=== PATIENT | female | born 1975 | race Caucasian/White ===

== ENCOUNTER 2017-10-12 01:58 | Emergency (ER) | payer SELFPAY ==
[2017-10-12 02:00] VITALS: BP 148/93; PULSE 83; RESP 22; TEMP 37.2; O2SAT 100; BMI 32.1
[2017-10-12 02:24] LABS: Absolute Lymphocyte Count 1.62 X10^3/ul (0.83-4.51); Absolute Neutrophil Count 7.1 X10^3/uL (2.0-7.7); Basophil# 0.04 X10^3/uL; Basophil% 0.4 % (0-1); Eosinophil# 0.14 X10^3/uL; Eosinophils% 1.5 % (0-5); Hematocrit 30.6 % (37-47); Hemoglobin 9.4 g/dl (12.0-15.0); Lymphocyte # 1.62 X10^3/ul (4.0); Mean Corp Hgb Conc 30.7 g/gl (32-36); Mean Corpuscular Hgb 22.5 pg (27.0-32.0); Mean Corpuscular Volume 73.4 fL (81-99); Mean Platelet Vol. 8.5 fl (6.2-12.0); Monocyte# 0.44 X10^3/uL; Monocyte% 4.6 % (0-10); Neutrophil # 7.11 X10^3/uL (2.7-7.7); Neutrophil % 74.4 % (47-70); Platelet Count 408 K/mm3 (150-450); RBC Distribution Width CV 19.8 % (11.6-14.6); RBC Distribution Width SD 49.9 fl (35.1-43.9); Red Blood Count 4.17 M/mm3 (4.2-5.4); White Blood Count 9.6 K/mm3 (4.4-11.0)
[2017-10-12 02:25] LABS: Differential Indicated SCAN CRITERIA MET; POSITIVE COUNT YES; POSITIVE DIFFERENTIAL NO; POSITIVE MORPHOLOGY YES
[2017-10-12 02:39] LABS: Differential Comment SCANNED; Microcytosis 3+
[2017-10-12] MEDS: 0.9% Normal Saline 1,000 ML 1000 ML IV (02:41)
[2017-10-12 02:47] LABS: ALB/GLOB Ratio 0.6 RATIO (0.9-2.4); AST(SGOT) 14 U/L (15-37); Alanine Aminotransfer ALT/SGPT 20 U/L (13-56); Albumin, Serum 2.7 g/dL (3.2-5.0); Alkaline Phosphatase 50 U/L (45-117); Anion Gap 10 (5-15); BUN 14 mg/dL (7-18); BUN/Creat Ratio 26.4 RATIO (10-20); Calcium,Total 8.4 mg/dL (8.5-10.1); Chloride 106 mmol/L (98-107); Creatinine, Serum 0.53 mg/dL (0.55-1.02); EST Glomerular Filtration Rate 136 mL/min (>60); Est Glom Filt Rate - Afr Amer 164 mL/min (>60); Estimated Creatinine Clearance 121.84 ml/min; Globulin 4.3 g/dL (2.2-4.2); Glucose 99 mg/dL (74-106); Potassium 3.7 mmol/L (3.5-5.1); Sodium Level 140 mmol/L (136-145)
[2017-10-12 03:30] VITALS: BP 128/74; PULSE 84; RESP 16; O2SAT 100
[2017-10-12 03:53] LABS: Mucous, Urine 0 SEEN /hpf (<or=2+); Red Blood Cells-Urine 0 SEEN /hpf (0-5)
--- NOTE | 2017-10-12 03:53 | NURSING ---
REPAGED DR. CARSON FOR THE 4TH TIME, HAS BEEN AN HOUR OF REPAGING EVERY 20 MINUTES
[2017-10-12 03:57] LABS: Color, Urine Straw (Yellow); Glucose, Dipstick Normal (Normal); Ketone-Dipstick Negative (Negative); Leukocyte Esterase-Dipstick 100 /ul (Negative); Nitrite-Dipstick Positive (Negative); Occult Blood-Urine Negative /ul (Negative); Protein-Dipstick Negative (Negative); Urine Bilirubin Dipstick Negative (Negative); Urine Clarity Clear (Clear); Urine Urobilinogen Normal (Normal); Urine pH 6.5 (5.0 - 8.0)
--- NOTE | 2017-10-12 04:16 | NURSING ---
DR. CARSON FINALLY RETURNED PAGE
[2017-10-12 04:20] LABS: Bacteria 3+ /hpf (None Seen); Squamous Epithelial Cells - UA 0-5 SEEN /hpf (5-10); White Blood Cells 5-10 SEEN /hpf (0-5)
--- NOTE | 2017-10-12 04:31 | ED.VISSUMM ---
- ER Visit Summary Date of Service: 10/12/17 Chief Complaint: Seizure History of Present Illness: The patient is a 42 F who is 17 weeks , Ab2. She presents today for seizures. 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 She did have surgery for this 10 years ago. She has had increasing seizures recently. They have been every few days, but today she had 4. She was on seizure meds with her most recent about 7 years ago, but is not sure what she was taking. She had 4 episodes tonight involving her right arm. At one time she could not move her right arm and during the other episodes, she had shaking or stiffness in her right arm. She did not lose consciousness. Denies trauma. Denies abdominal pain, vaginal bleeding, or discharge. Physical Examination: Blood pressure 148/93. Otherwise vitals normal. Atraumatic and normocephalic. Cranial nerves grossly intact. Heart regular. Lungs clear. Abdomen soft. Extremities unremarkable. No focal or lateralizing neurologic abnormalities. Alert and oriented. Mood and affect are appropriate for the situation. Test Results: CBC unremarkable except for hemoglobin of 9.4. CMP normal. Urinalysis shows a UTI. Cultures pending. Emergency Department Course and Treatment: Patient had fluids. Was observed in the emergency department. The heart tones were 150. No further seizure activity. Repeat blood pressures are much improved, 128/85. No edema noted. Normal liver function. Normal platelets. Patient will be started on Macrobid for her UTI. Cultures pending. I spoke with Dr. Malagon. Patient will be started on Keppra, 500 mg twice a day. Follow-up in the office. She was given seizure precautions. No driving. Complications discussed. She will take her medication. Follow-up with neurology. Follow-up with her OB doctor, JUAN CARLOS at [facility]. Treatment Plan: As above Disposition: Discharged Impression: 1. Seizure 2. second trimester 3. UTI This note was generated with [employer] software. It may contain incorrect words, spelling, and punctuation that were not noted in review of the chart prior to signing ED Disposition - Plan for ED Patient: Chief Complaint: Seizure Referrals: Care Physician,No Primary [Primary Care Provider] -
--- NOTE | 2017-10-12 04:35 | ED.DCSUM_ITS ---
- ER Visit Summary Date of Service: 10/12/17 Chief Complaint: Seizure History of Present Illness: The patient is a 42 F who is 17 weeks , Ab2. She presents today for seizures. 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 She did have surgery for this 10 years ago. She has had increasing seizures recently. They have been every few days, but today she had 4. She was on seizure meds with her most recent about 7 years ago, but is not sure what she was taking. She had 4 episodes tonight involving her right arm. At one time she could not move her right arm and during the other episodes, she had shaking or stiffness in her right arm. She did not lose consciousness. Denies trauma. Denies abdominal pain, vaginal bleeding, or discharge. Physical Examination: Blood pressure 148/93. Otherwise vitals normal. Atraumatic and normocephalic. Cranial nerves grossly intact. Heart regular. Lungs clear. Abdomen soft. Extremities unremarkable. No focal or lateralizing neurologic abnormalities. Alert and oriented. Mood and affect are appropriate for the situation. Test Results: CBC unremarkable except for hemoglobin of 9.4. CMP normal. Urinalysis shows a UTI. Cultures pending. Emergency Department Course and Treatment: Patient had fluids. Was observed in the emergency department. The heart tones were 150. No further seizure activity. Repeat blood pressures are much improved, 128/85. No edema noted. Normal liver function. Normal platelets. Patient will be started on Macrobid for her UTI. Cultures pending. I spoke with Dr. Malagon. Patient will be started on Keppra, 500 mg twice a day. Follow-up in the office. She was given seizure precautions. No driving. Complications discussed. She will take her medication. Follow-up with neurology. Follow-up with her OB doctor, JUAN CARLOS at [facility]. Treatment Plan: As above Disposition: Discharged Impression: 1. Seizure 2. second trimester 3. UTI This note was generated with [employer] software. It may contain incorrect words, spelling, and punctuation that were not noted in review of the chart prior to signing ED Disposition - Plan for ED Patient: Chief Complaint: Seizure Referrals: Care Physician,No Primary [Primary Care Provider] -
--- NOTE | 2017-10-12 04:35 | ED.DEP ---
ED Disposition - Plan for ED Patient: Chief Complaint: Seizure Instructions: ED Seizure Recurrent Prescriptions: Levetiracetam [Keppra] 500 mg PO BID #60 tab Nitrofurantoin Monohyd/M-Cryst [Macrobid 100 mg Capsule] 100 mg PO BID #14 cap Referrals: Chris Malagon MD [STAFF PHYSICIAN] - Additional Instructions: Also follow-up with your MFM doctor at [facility]. You will need close monitoring and checks of your blood pressure.
[2017-10-12 04:41] VITALS: BP 143/95; PULSE 100; RESP 27; O2SAT 100
[2017-10-12] MEDS: levETIRAcetam 500 MG Tablet PO (04:41)
[2017-10-12] MEDS: Nitrofurantoin Macrocrystals 100 MG Capsule PO (04:41)
[2017-10-15 11:10] LABS: Pathologist Review Reviewed
== END 2017-10-12 04:51 | disposition home or self-care (01) ==
PROVIDERS: Emergency Provider Emergency Medicine
DX: O99.352 Diseases of the nervous system complicating pregnancy, second trimester (principal); G40.909 Epilepsy, unspecified, not intractable, without status epilepticus; O23.42 Unspecified infection of urinary tract in pregnancy, second trimester; Z3A.17 17 weeks gestation of pregnancy; Z87.891 Personal history of nicotine dependence
CPT/HCPCS: 80053; 81001; 85025; 87086; 87088; 87186; 99285; A4216

== ENCOUNTER → 2017-10-15 13:30 | Outpatient (CLI) | payer SELFPAY ==
[2017-10-15 15:35] LABS: Hematocrit 31.1 % (37-47); Hemoglobin 9.4 g/dl (12.0-15.0); Mean Corp Hgb Conc 30.2 g/gl (32-36); Mean Corpuscular Hgb 22.4 pg (27.0-32.0); Mean Platelet Vol. 9.1 fl (6.2-12.0); Platelet Count 442 K/mm3 (150-450); RBC Distribution Width CV 20.1 % (11.6-14.6); RBC Distribution Width SD 51.9 fl (35.1-43.9); White Blood Count 10.8 K/mm3 (4.4-11.0)
[2017-10-15 16:17] LABS: Scan Indicated on CBC? Y/N YES- FLAGS NOTED
[2017-10-15 16:29] LABS: HIV - WCH Non-Reactive (Nonreactive); Rubella IgG 71.2 IU/mL
[2017-10-17 07:12] LABS: HEPATITIS B SURFACE AG Negative (Negative)
[2017-10-21 01:48] LABS: Rapid Plasmin Reagin (RPR) NONREACTIVE (NONREACTIVE)
== END ==
DX: O09.90 Supervision of high risk pregnancy, unspecified, unspecified trimester (principal); Z3A.00 Weeks of gestation of pregnancy not specified
CPT/HCPCS: 36415; 85027; 86592; 86703; 86762; 87086; 87088; 87340

== ENCOUNTER → 2017-11-12 10:38 | Outpatient (CLI) | payer SELFPAY ==
[2017-11-13 01:01] LABS: Chlamydia Trachomatis by PCR Negative (Negative); Neisserai gonorrhoeae by PCR Negative (Negative); Probe Check PASS; Sample Adequacy Control PASS; Specimen Processing Control PASS
[2017-11-20 10:08] LABS: HPV HC, High Risk Positive (Negative)
== END ==
DX: O09.90 Supervision of high risk pregnancy, unspecified, unspecified trimester (principal); O99.352 Diseases of the nervous system complicating pregnancy, second trimester; G40.909 Epilepsy, unspecified, not intractable, without status epilepticus; Z3A.00 Weeks of gestation of pregnancy not specified; Z12.4 Encounter for screening for malignant neoplasm of cervix
CPT/HCPCS: 36415; 86850; 86900; 87086; 87088; 87491; 87591; 88175; G0145

== ENCOUNTER 2017-11-16 17:12 | Emergency (ER) | payer SELFPAY ==
[2017-11-16 17:13] VITALS: BP 128/90; PULSE 96; RESP 16; TEMP 37.1; O2SAT 98; BMI 29.3
--- NOTE | 2017-11-16 18:20 | ED.DCSUM_ITS ---
- ER Visit Summary Date of Service: 11/16/17 Chief Complaint: Seizure History of Present Illness: The patient is a 42 F presenting with seizure. Patient states that she has had several seizures today. She is unsure how many seizures. These were unwitnessed. She had no injury. She states her daughter came home from school and witnessed 3 seizures. She is unable to describe how long the seizures were or the number of seizures. She is 22 weeks . She states that she feels the baby moving normally. No vaginal bleeding or abdominal pain. Patient states last week she was worried that she was going to run out of her Keppra so she changed her medication to once daily to spread out the medications. She went back up to her normal twice daily dosing on Sunday. No fever or other complaints. Physical Examination: Vitals are stable. Patient is afebrile. Alert no acute distress. HEENT exam is unremarkable. Neck is supple. Lungs are clear and equal bilaterally. Heart is regular rate and rhythm. Abdomen is soft nontender gravid Extremities are unremarkable. Skin is warm and dry. No focal neurologic deficit. Remainder of exam is unremarkable. Emergency Department Course and Treatment: heart tones 150. Patient is given Tylenol p.o. She was observed in the ED and had no further seizure activity. Discussed with Dr. Alonso who recommends increasing her Keppra to 750 mg twice daily. Recommends Keppra level and repeat Keppra level every month during . Patient will follow up with neurology and her [employer]. She is advised return to ED if worsening complaints. Disposition: Discharge home Impression: Seizure disorder, This note was generated with [employer] dictation software. It may contain incorrect words, spelling, and punctuation that were not noted in review of the chart prior to signing ED Disposition - Plan for ED Patient: Chief Complaint: Seizure Referrals: Care Physician,No Primary [Primary Care Provider] -
[2017-11-16 20:11] VITALS: BP 131/79; PULSE 78; RESP 16; O2SAT 99
[2017-11-16] MEDS: Acetaminophen 500 MG Tablet 1000 MG PO (20:13)
--- NOTE | 2017-11-16 20:29 | ED.DEP ---
ED Disposition - Plan for ED Patient: Chief Complaint: Seizure Instructions: ED Seizure Recurrent Prescriptions: Levetiracetam [Keppra] 750 mg PO BID #60 tablet Referrals: Care Physician,No Primary [Primary Care Provider] -
--- NOTE | 2017-11-16 20:29 | ED.RN ---
THERE ARE NO SOFT SEIZURE PADS AVAILABLE, PT HAS VISITOR AT BEDSIDE AND CALL LIGHT.
[2017-11-16 20:34] VITALS: BP 121/89; PULSE 75; RESP 16; O2SAT 99
[2017-11-19 14:49] LABS: KEPPRA (LEVETIRACETAM) 4.7 ug/mL (10.0-40.0)
== END 2017-11-16 20:38 | disposition home or self-care (01) ==
LOC: ED 18:24
PROVIDERS: Emergency Provider Emergency Medicine
DX: O99.352 Diseases of the nervous system complicating pregnancy, second trimester (principal); G40.909 Epilepsy, unspecified, not intractable, without status epilepticus; Z3A.22 22 weeks gestation of pregnancy
CPT/HCPCS: 36415; 80177; 99283

== ENCOUNTER → 2017-11-27 11:41 | Outpatient (CLI) | payer SELFPAY ==
[2017-11-27 13:38] LABS: Absolute Lymphocyte Count 1.75 X10^3/ul (0.83-4.51); Absolute Neutrophil Count 6.8 X10^3/uL (2.0-7.7); Basophil# 0.01 X10^3/uL; Basophil% 0.1 % (0-1); Differential Indicated SCAN CRITERIA MET; Eosinophil# 0.16 X10^3/uL; Eosinophils% 1.7 % (0-5); Hematocrit 33.2 % (37-47); Hemoglobin 10.3 g/dl (12.0-15.0); Lymphocyte # 1.75 X10^3/ul (4.0); Mean Corpuscular Hgb 26.5 pg (27.0-32.0); Mean Corpuscular Volume 85.6 fL (81-99); Mean Platelet Vol. 8.9 fl (6.2-12.0); Monocyte# 0.46 X10^3/uL; Neutrophil # 6.77 X10^3/uL (2.7-7.7); Neutrophil % 73.5 % (47-70); POSITIVE COUNT NO; POSITIVE DIFFERENTIAL NO; POSITIVE MORPHOLOGY YES; Platelet Count 271 K/mm3 (150-450); RBC Distribution Width CV 23.5 % (11.6-14.6); RBC Distribution Width SD 73.2 fl (35.1-43.9); Red Blood Count 3.88 M/mm3 (4.2-5.4); White Blood Count 9.2 K/mm3 (4.4-11.0)
[2017-11-27 13:58] LABS: Glucose Challenge Gest 1H 50g 108 mg/dL (70-140)
[2017-11-27 14:00] LABS: Anisocytosis 2+; Hypochromasia RARE; Microcytosis 1+
== END ==
PROVIDERS: Visit Provider Obstetrics & Gynecology Maternal & Fetal Medicine
DX: O09.529 Supervision of elderly multigravida, unspecified trimester (principal); Z3A.24 24 weeks gestation of pregnancy
CPT/HCPCS: 36415; 82950; 85025

== ENCOUNTER 2017-12-17 11:51 | Outpatient (RCR) | payer MEDICAID, SELFPAY ==
[2017-12-19 11:27] LABS: KEPPRA (LEVETIRACETAM) 11.6 ug/mL (10.0-40.0)
== END 2017-12-17 12:00 | disposition home or self-care (01) ==
LOC: LAB 11:51
PROVIDERS: Visit Provider Psychiatry & Neurology Neurology
DX: R56.9 Unspecified convulsions (principal)
CPT/HCPCS: 36415; 80177

== ENCOUNTER → 2018-01-14 12:19 | Outpatient (CLI) | payer MEDICAID, SELFPAY ==
[2018-01-17 11:41] LABS: KEPPRA (LEVETIRACETAM) 11.8 ug/mL (10.0-40.0)
== END ==
PROVIDERS: Visit Provider Nurse Practitioner Acute Care
DX: G40.909 Epilepsy, unspecified, not intractable, without status epilepticus (principal)
CPT/HCPCS: 36415; 80177

== ENCOUNTER 2018-02-11 12:03 | Outpatient (RCR) | payer MEDICAID, SELFPAY ==
--- NOTE | 2018-02-11 12:03 | DT_ITS ---
This patient was seen during an EMR downtime February 04, 2018 - February 11, 2018. This patient may have a combination of paper and electronic documentation or all paper documentation. All documentation is viewable within the e-chart portion of [employer] for each patient visit.
== END 2018-02-11 13:00 | disposition home or self-care (01) ==
LOC: LAB 12:03
PROVIDERS: Visit Provider Psychiatry & Neurology Neurology
DX: G40.909 Epilepsy, unspecified, not intractable, without status epilepticus (principal)
CPT/HCPCS: 36415; 80177

== ENCOUNTER → 2018-02-11 12:31 | Outpatient (CLI) | payer MEDICAID, SELFPAY ==
--- NOTE | 2018-02-11 12:31 | DT_ITS ---
This patient was seen during an EMR downtime February 04, 2018 - February 11, 2018. This patient may have a combination of paper and electronic documentation or all paper documentation. All documentation is viewable within the e-chart portion of [employer] for each patient visit.
[2018-02-11 14:18] LABS: Group B Strep DNA By PCR Negative (Negative); Internal Control PASS; Probe Check PASS; Specimen Processing Control PASS
== END ==
DX: Z36.85 Encounter for antenatal screening for Streptococcus B (principal); O99.353 Diseases of the nervous system complicating pregnancy, third trimester; G40.909 Epilepsy, unspecified, not intractable, without status epilepticus; Z3A.35 35 weeks gestation of pregnancy
CPT/HCPCS: 36415; 80177; 87081; 87653

== ENCOUNTER → 2018-05-07 16:11 | Outpatient (CLI) | payer MEDICAID, SELFPAY ==
[2018-05-11 09:14] LABS: KEPPRA (LEVETIRACETAM) 22.3 ug/mL (10.0-40.0)
== END ==
PROVIDERS: Visit Provider Nurse Practitioner Acute Care
DX: R56.9 Unspecified convulsions (principal)
CPT/HCPCS: 36415; 80177

== ENCOUNTER → 2018-08-20 14:23 | Outpatient (CLI) | payer MEDICAID, SELFPAY ==
[2018-08-07 15:37] VITALS: BMI 32.1
--- NOTE | 2018-08-20 14:26 | CT_ITS ---
Exam: CTA of the neck with contrast and 2-D reconstructions. HISTORY: Headache. History of left-sided AVM. COMPARISON: None TECHNIQUE: Patient injected with 100 cc Isovue-370 IV. Axial images were followed with 2-D MIPS reconstructions reviewed at a separate workstation. FINDINGS: Normal appearance of the visualized aortic arch. Normal branching pattern of the great vessels. Common carotid arteries are normal for age. No significant calcified plaque of the carotid bulbs. No measurable stenosis at the carotid bulb or the origins of either ICA. Normal appearance of the cervical ICAs bilaterally to the base of the brain. Normal origin and appearance of the vertebral arteries. Normal visualized basilar artery. Visualized soft tissues including the lung apices and visualized cervical spine show no gross acute abnormalities. CT/CTA Neck W/WO Contrast IMPRESSION: CTA of the neck vessels is normal for age. Electronically Signed: Familia Alamo MD at 16:25 EST , Service support ,
--- NOTE | 2018-08-20 14:26 | CT_ITS ---
STUDY: CT BRAIN WITH AND WITHOUT CONTRAST REASON FOR EXAM: Female, 43 years old. Left-sided headache behind eye history of AVM with repair RADIATION DOSAGE (If Supplied By Facility): CTDIvol = ( 34.53 ) mGy, DLP = ( 2288.30 ) mGycm TECHNIQUE: Transaxial CT imaging of the brain was performed pre and post contrast administration. The examination was performed with intravenous administration of 100 ml of Isovue 370 contrast material. Individualized dose optimization techniques were used for this CT. COMPARISON: Previous study of 12/15/2011 FINDINGS: Normal soft tissue structures. Normal calvarium. There is extensive scanning artifact caused by multiple embolization coils of the left frontoparietal region. The visualized lateral ventricles are normal in size and are symmetric. The third and fourth ventricles are midline. Normal white matter tracts of the cerebral hemispheres. Normal basal ganglia and thalami. Normal brainstem. Normal cerebellum. There is no intracranial hemorrhage. There are no findings of an acute ischemic infarction. There is complete opacification of the right maxillary sinus. CT/Brain/Head W/WO Contrast IMPRESSION: Limited study secondary to extensive scanning artifact caused by embolization coils of the left frontoparietal region. The findings are consistent with AVM repair. There is no evidence of intracranial hemorrhage or acute infarct. There is complete opacification of the right maxillary sinus. Electronically Signed: Jorge A Ferro MD at 16:28 EST , Service support ,
--- OUTSIDE RECORDS SUMMARY | 2018-11-22 02:00 | XMS RPT_ITS ---
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 [facility] Number: Effective Repository Date:2018-05-07 04/22/2018 BETH EZEKIEL Primary BETH EZEKIEL [facility] LECKRONEDOB: Insurance:CARESOURCEP LECKRONEDOB: [facility] olicy Number: [id number] Repository [place], [id number] 0 [place] [address]Fsj: Date: [place] [address] () 03/25/2018 BETH EZEKIEL Primary BETH EZEKIEL [facility] LECKRONEDOB: Insurance:CARESOURCEP LECKRONEDOB: Hospital olicy Number: [id number] Repository [place], [id number] 0 [place] [address]Fop: Date: [place] [address] (HP) 03/11/2018 BETH A Primary BETH A [facility] LECKRONEDOB: Insurance:CARESOURCE LECKRONEDOB: Health System MEDICAIDPolicy [id number] Repository [place], Number: [place] [address]Skb: [id number] Date: (HP) 03/04/2018 BETH EZEKIEL Primary [facility] LECKRONEDOB: Insurance:CARESOURCEP LECKRONEDOB: [facility] olicy Number: [id number] Repository [place], [id number] 0 [place] [address]Yht: Date: [place] [address] (HP) 03/04/2018 BETH EZEKIEL Primary [facility] LECKRONEDOB: Insurance:CARESOURCEP LECKRONEDOB: [facility] oly Number: [id number] Repository [place] [address], [id number] 0 [place] [address]Ezx: Date: [place] [address] (HP) 03/03/2018 BETH A Primary BETH A Greg [id number] Insurance:CARESOURCEP LECKRONEDOB: [facility] TWANFILOMENA [facility] Number: [id number][facility]Canonc[facility] [address]Okh: [id number] Repository Date:2018-01-01 O () [address]ATTN: [place] [address]FZ: 03/03/2018 Secondary NOT GIVENUNK Greg Insurance:SELF PAY [facility] Number: Effective Repository Date:2018-03-01 02/25/2018 BETH EZEKIEL Primary [facility] LECKRONEDOB: Insurance:CARESOURCEP LECKRONEDOB: [facility] Number: [id number] Repository [place] [address], [id number] 0 [place] [address]Ner: Date: [place] [address] (HP) 02/25/2018 BETH EZEKIEL Primary BETH EZEKIEL [facility] LECKRONEDOB: Insurance:CARESOURCEP LECKRONEDOB: Hospital olicy Number: [id number] Repository [place] [address], [id number] 0 [place] [address]Dai: Date: [place] [address] (HP) 02/21/2018 BETH A Primary [facility] LECKRONEDOB: Insurance:CARESOURCE LECKRONEDOB: Health System MEDICAIDPolicy [id number] Repository [facility] Number: [place] [id number]: (330) Date: [phone] (HP) 02/18/2018 BETH EZEKIEL Primary [facility] LECKRONEDOB: Insurance:CARESOURCEP LECKRONEDOB: Hospital olicy Number: [id number] Repository [place] IRLANDA, [id number] 0 [place] [address]Kwi: Date: [place] [address] () 02/18/2018 BETH EZEKIEL Primary [facility] LECKRONEDOB: Insurance:CARESOURCEP LECKRONEDOB: Hospital olicy Number: [id number] Repository [place] IRLANDA, [id number] 0 [place] [address]Nkg: Date: [facility] [place] [address] () 02/11/2018 BETH A Primary BETH A Greg [id number] Insurance:CARESOURCEP LECKRONEDOB[facility] [place] Number: [id number] [facility] [place] [address]Tug: [id number] Repository Date:2018-02-11 O () [address]ATTN: [place] [address]MR: 02/11/2018 Secondary NOT GIVENUNK [place] Insurance:SELF PAY [facility] Number: Effective Repository Date:2018-02-11 02/11/2018 BETH Smalls Primary BETH A Greg [id number] Insurance:CARESOURCEP LECKRONEDOB: [facility] IRLANDA [facility] Number: [id number] [address]Oia: [id number] Repository Date:2018-01-01 O () [address]ATTN: [place] [address]LZ: 02/11/2018 Secondary NOT GIVENUNK Greg Insurance:SELF PAY [facility] Number: Effective Repository Date:2018-01-01 02/11/2018 BETH FALCON Primary [facility] LECKRONEDOB: Insurance:CARESOURCEP LECKRONEDOB: [facility] olicy Number: [id number] Repository [place] [facility], [id number] 0 [place] [address]Wve: Date: [place] [address] () 02/11/2018 BETH FALCON Primary [facility] LECKRONEDOB: Insurance:CARESOURCEP LECKRONEDOB: [facility] olicy Number: [id number] Repository [place] [facility], [id number] 0 [place] [address]Ksy: Date: [place] [address] () 02/05/2018 BETH FALCON Primary [facility] LECKRONEDOB: Insurance:CARESOURCEP LECKRONEDOB: Hospital olicy Number: [id number] Repository [place], [id number] 0 [place] [address]Gkv: Date: [place] [address] () 02/05/2018 BETH FALCON Primary [facility] LECKRONEDOB: Insurance:CARESOURCEP LECKRONEDOB: Hospital olicy Number: [id number] Repository [place], [id number] 0 [place] [address]Ujh: Date: [place] [address] () 01/31/2018 BETH FALCON Primary BETH FALCON [facility] LECKRONEDOB: Insurance:CARESOURCEP LECKRONEDOB: Hospital olicy Number: [id number] Repository [place], [id number] 0 [place] [address]Kua: Date: [place] [address] () 01/21/2018 BETH FALCON Primary [facility] LECKRONEDOB: Insurance:CARESOURCEP LECKRONEDOB: [facility] olicy Number: [id number] Repository [place], [id number] 0 [place] [address]Tlw: Date: [place] [address] () 01/21/2018 BETH FALCON Primary [facility] LECKRONEDOB: Insurance:CARESOURCEP LECKRONEDOB: [facility] olicy Number: [id number] Repository [place], [id number] 0 [place] [address]Cnn: Date: [place] [address] () 01/14/2018 BETH Smalls Primary BETH A Greg [id number] Insurance:CARESOURCEP [facility]EDOB[facility] LA[facility]ARAWROSALVA[facility] Number: [id number] [facility] [place] [address]Jpg: [id number] Repository Date:2017-11-28P O () [address]ATTN: [place] [address]PH: 01/14/2018 Secondary NOT GIVENUNK Greg Insurance:SELF PAY [facility] Number: Effective Repository Date:2017-11-28 01/07/2018 BEHT [facility] LECKRONEDOB: Insurance:CARESOURCEP LECKRONEDOB: [facility] olicy Number: [id number] [facility]ository [facility] [id number] [address] [place] [address]Fyc: Date: [place] [address] () 01/07/2018 B[facility] LECKRONEDOB: Insurance:CARESOURCEP LECKRONEDOB: [facility] Number: [id number] Repository [place] [facility], [id number] 0 [place] [address]Gwf: Date: [place] [address] () 12/24/2017 BETH [facility] LECKRONEDOB: Insurance:CIGNAPolicy LECKRONEDOB: [facility] Number: [id number] Repository [place] [id number] [address] [place], [place] Date: [place], [place] [address]Ech: [phone] () 12/17/2017 BETH Smalls Primary BETH Smalls [place] [id number] Insurance:MEDICAIDPol LECKRONEDOB: [facility] [place] Number: [id number] [place] [address]Dsq: [id number] Repository Date:2017-12-17 () 12/17/2017 Secondary NOT GIVENUNK Greg Insurance:SELF PAY [facility] Number: Effective Repository Date:2017-12-17 12/10/2017 BETH Arriaza's LECKRONEDOB: Insurance:CIGNAPolicy LECKRONEDOB: [facility] Number: [id number] Repository [place] [id number] 7 [facility] [place] Date: [place], [place] [address]Bhb: [phone] (HP) 12/10/2017 BETH EZEKIEL Primary [facility] LECKRONEDOB: Insurance[place] LECKRONEDOB: [facility] MEDICAIDPolicy [id number] Repository [facility], Number: [address] [place] [address]Ahb: [id number] [place] Date: (HP) 12/10/2017 Secondary [facility] Insurance:[place] LECKRONEDOB: Hospital MEDICAIDPolicy [id number] Repository Number: 0 [place] [id number] [facility], [place] Date: [phone] 11/27/2017 Beth A Primary NOT GIVENUNK Greg [id number] Insurance[place]SELF [place] Number: Effective Repository [id number]: (330) Date:2017-11-27 [phone] (HP) 11/26/2017 BETH EZEKIEL Primary CCUA [facility] LECKRONEDOB: Insurance:CIGNAPolicy LECKRONEDOB: [facility] Number: [id number] Repository [place] [id number] 7 [facility], [place] Date: [place], [place] [address]Jyq: [phone] (HP) 11/16/2017 Beth A Primary NOT GIVENUNK Greg [id number] Insurance[place] Number: Effective Repository [id number]: (330) Date:2017-11-16 [phone] (HP) 11/12/2017 Beth A Primary NOT GIVENUNK Greg [id number] Insurance[place] Number: Effective Repository [id number]: (330) Date:2017-11-12 [phone] (HP) 11/12/2017 BETH FALCON Primary CUCA [facility] LECKRONEDOB: Insurance:CIGNAPolicy LECKRONEDOB: [facility] Number: [id number] Repository [place] [id number] 7 [facility], [place] Date: [place], [place] [address]Owz: [phone] (HP) 11/12/2017 BETH FALCON Primary CUCA [facility] LECKRONEDOB: Insurance:CIGNAPolicy LECKRONEDOB: [facility] Number: [id number] Repository [place] [id number] 7 [place], [place] Date: [place], [place] [address]Fgt: [phone] (HP) 10/15/2017 Beth Smalls Primary NOT GIVENUNK [place] [id number] Insurance[place]LF [place] Number: Effective Repository [id number]: (330) Date:2017-10-15 [phone] (HP) 10/15/2017 BETH FALCON Primary [facility]CA [facility] LECKRONEDOB: Insurance:CIGNAPolicy LECKRONEDOB: [facility] Number: [id number] Repository [place] [id number] 7 [facility], [place] Date: [place], [place] [address]Zbw: ([phone] (HP) 10/15/2017 BETH FALCON Primary [facility] LECKRONEDOB: Insurance:CIGNAPolicy LECKRONEDOB: [facility] Number: [id number] Repository [place] [id number] 7 [facility], [place] Date: [place], [place] [address]Szo: [phone] (HP) 10/12/2017 Beth A Primary NOT GIVENWINNIE Greg [id number] Insurance:SELF [place] Number: Effective Repository [id number]: 330) Date:2017-10-12 [phone] ()
== END ==
PROVIDERS: Referring Provider Nurse Practitioner Acute Care; Visit Provider Nurse Practitioner Acute Care
DX: R20.0 Anesthesia of skin (principal); R20.2 Paresthesia of skin; R51 Headache
CPT/HCPCS: 70470; 70498; Q9967; A4216

== ENCOUNTER → 2018-10-22 08:03 | Outpatient (CLI) | payer MEDICAID, SELFPAY ==
[2018-08-07 15:37] VITALS: BMI 32.1
--- NOTE | 2018-10-22 10:51 | NEURO ---
NCS and/or EMG Patient Report Ordering Doctor: Mary Raman DATE OF SERVICE: 10/22/18 This is a right upper and right lower extremity nerve conduction study as well as EMG performed on this 43-year-old female with a history of intermittent numbness and tingling on the right side of her body including her arms and legs but not affecting her face or torso. She also has a history of an AVM in her left brain and has a history of seizures but states that these symptoms are unrelated to her seizures. Upper and right lower extremity EMG and nerve conduction study is performed. The median motor and sensory, ulnar motor and sensory and radial sensory responses demonstrate mild prolongation of the median motor distal latency with intact amplitudes and conduction velocities but are otherwise normal in the right upper extremity. Median ulnar F-wave latencies are intact. In the right lower extremity the common peroneal motor and tibial motor distal latencies amplitudes and conduction velocities are normal. The sural sensory response is also normal and the F-wave latencies from the tibial and common peroneal nerves are normal. The tibial H reflex responses bilaterally are normal. Right upper and right lower extremity needle electromyography is performed. In the right upper extremity muscles evaluated included the abductor pollicis brevis, brachioradialis, first dorsal interosseous, biceps, triceps and deltoid muscles. In the right lower extremity muscles evaluated included the extensor digitorum brevis, abductor houses, medial gastrocnemius, anterior tibialis, vastus medialis and vastus lateralis muscles. All muscles in the right upper and right lower extremity demonstrated normal insertional activity with absence of pathologic spontaneous activity. Motor unit potential recruitment pattern and amplitude was normal in all muscles tested. Impression: There is very mild carpal tunnel syndrome however this is likely not clinically significant all other nerves and muscles tested are normal and this is otherwise a normal electrophysiologic study.
== END ==
PROVIDERS: Referring Provider Nurse Practitioner Acute Care; Visit Provider Nurse Practitioner Acute Care
DX: R20.0 Anesthesia of skin (principal); R20.2 Paresthesia of skin
CPT/HCPCS: 95886; 95912